=== PATIENT | male | born 1990 | race African-American/Black ===

== ENCOUNTER 2018-03-06 18:17 | Emergency (ER) | payer OTHER ==
[~2018-03-06] VITALS: Ht 175.3 cm; Wt 88.5 kg
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
== END 2018-03-06 18:51 | disposition home or self-care (01) ==
LOC: FSED 18:17
DX: S20.212A Contusion of left front wall of thorax, initial encounter (principal); V43.52XA Car driver injured in collision with other type car in traffic accident, initial encounter; Y92.488 Other paved roadways as the place of occurrence of the external cause
CPT/HCPCS: 71045; 99283